=== PATIENT | female | born 1950 | race Caucasian/White ===

== ENCOUNTER 2023-01-02 12:53 | Outpatient (REF) | payer MEDICARE, OTHER, SELFPAY ==
--- NOTE | 2023-01-02 13:00 | EMG_ITS ---
Chief complaint: chronic back pain, right foot drop, history of 2 lumbar surgeries including a fusion in 2021 Reason for referral: Evaluate for radiculopathy Referred by: Robyn Youssef CNP Procedure done: Bilateral lower extremity NCS/EMG Precautions and/or limitations: None The limb temperature was monitored continuously and remained between 32-36 degrees C during the performance of the NCS. Nerve Conduction Studies Anti Sensory Summary Table ?Stim Site NR Onset (ms) Norm Onset (ms) Peak (ms) Norm Peak (ms) O-P Amp (?V) Norm O-P Amp Site1 Site2 Delta-0 (ms) Dist (cm) Nelson (m/s) Norm Nelson (m/s) Left Sural Anti Sensory (Lat Mall) Calf ? 3.4 3.9 <4.0 7.9 >5.0 Calf Lat Mall 3.4 14.0 41 Right Sural Anti Sensory (Lat Mall) Calf ? 2.5 3.8 <4.0 5.0 >5.0 Calf Lat Mall 2.5 14.0 56 Motor Summary Table ?Stim Site NR Onset (ms) Norm Onset (ms) O-P Amp (mV) Norm O-P Amp iAmp (mV) Amp (1st) (%) Site1 Site2 Delta-0 (ms) Dist (cm) Nelson (m/s) Norm Nelson (m/s) Left Peroneal Motor (Ext Dig Brev) Ankle NR <4.0 >2.5 Ankle Ext Dig Brev 0.0 B Fib NR B Fib Ankle 0.0 >40 Poplt NR Poplt B Fib 0.0 >40 Right Peroneal Motor (Ext Dig Brev) Ankle NR <4.0 >2.5 Ankle Ext Dig Brev 0.0 B Fib NR B Fib Ankle 0.0 >40 Poplt NR Poplt B Fib 0.0 >40 Left Tibial Motor (Abd Quintero Brev) Ankle ? 4.7 <5 5.3 >2.5 7.2 100.0 Ankle Abd Quintero Brev 4.7 0.0 Knee ? 12.3 4.6 6.4 86.8 Knee Ankle 7.6 35.0 46 >40 Right Tibial Motor (Abd Quintero Brev) Ankle ? 4.3 <5 0.9 >2.5 1.3 100.0 Ankle Abd Quintero Brev 4.3 0.0 Knee ? 13.4 1.8 2.8 200.0 Knee Ankle 9.1 34.0 37 >40 EMG ?Side Muscle Nerve Root Ins Act Fibs Psw Amp Dur Poly Recrt Int Pat Comment Right AbdHallucis MedPlantar S1-2 Incr 1+ 1+ Nml Nml 0 Nml Complete Right AntTibialis Dp Br Peron L4-5 Incr 1+ 1+ Nml Nml 0 Nml Complete Right PostTibialis Tibial L5, S1 Incr 1+ 1+ Nml Nml 0 Nml Complete Right MedGastroc Tibial S1-2 Incr 1+ 1+ Nml Nml 0 Nml Complete Right VastusMed Femoral L2-4 Nml Nml Nml Nml Nml 0 Nml Complete Left AbdHallucis MedPlantar S1-2 Nml Nml Nml Nml Nml 0 Nml Complete Left AntTibialis Dp Br Peron L4-5 Incr 1+ 1+ Incr Incr 0 Reduced Complete Left PostTibialis Tibial L5, S1 Nml Nml Nml Nml Nml 0 Nml Complete Left MedGastroc Tibial S1-2 Incr 1+ 1+ Incr Incr 0 Nml Complete Left VastusMed Femoral L2-4 Nml Nml Nml Nml Nml 0 Nml Complete FINDINGS: Bilateral peroneal nerves showed absent response. Right tibial nerve showed normal distal latency, small amplitude and slow conduction velocity. All other nerves tested were within normal. Concentric needle EMG was performed in selected muscles of the bilateral lower extremity. Study revealed signs of electric abnormalities as shown in the table below. Right medial gastrocnemius, tibialis anterior, posterior tibialis, AH muscles showed increased insertional activity, PSWs and fibrillations. Left tibialis anterior showed increased insertional activity, PSWs, fibrillations, increased amplitude and duration, reduced recruitment. Left medial gastrocnemius showed increased insertional activity, PSWs, fibrillations, increased amplitude and duration. IMPRESSION: 1. This is an abnormal study. 2. There is electrodiagnostic evidence for right chronic L5-S1 radiculopathy and left subacute/chronic L5-S1 radiculopathy. 3. There is no electrodiagnostic evidence for lumbosacral plexopathy, or peripheral neuropathy. Thank you for your kind referral. Camelia Feldman MD, NURIS Board Certified, [place] [employer] (ABPMR) Board Certified, [place] [employer] (ABEM) CODIN [id number] x 2 MTDD
== END 2023-01-02 12:54 | disposition home or self-care (01) ==
LOC: HO.NEURO 12:53
PROVIDERS: Visit Provider Nurse Practitioner Family
DX: M48.02 Spinal stenosis, cervical region (principal); M48.07 Spinal stenosis, lumbosacral region
CPT/HCPCS: 95886; 95909

== ENCOUNTER → 2023-01-02 13:00 | Outpatient (BNV) | payer MEDICARE, OTHER, SELFPAY | PROVIDERS: Visit Provider Physical Medicine & Rehabilitation | DX: M54.17 Radiculopathy, lumbosacral region (principal); M54.16 Radiculopathy, lumbar region | CPT/HCPCS: 95886; 95909 ==